=== PATIENT | female | born 1980 | race Caucasian/White ===

== ENCOUNTER → 2021-01-17 | Outpatient (CLI) | payer BC | END | disposition home or self-care (01) | LOC: LABWHC1 11:14 | PROVIDERS: ATTEND Physician Assistant Medical | DX: L70.8 Other acne (principal) | CPT/HCPCS: 36415; 84132 ==

== ENCOUNTER → 2021-05-29 | Outpatient (CLI) | payer BC | END | disposition home or self-care (01) | CPT/HCPCS: 77067 ==

== ENCOUNTER → 2021-12-31 | Outpatient (CLI) | payer BC | END | disposition home or self-care (01) | LOC: LABWHC1 12:49 | PROVIDERS: ATTEND Physician Assistant Medical | DX: L70.8 Other acne (principal) | CPT/HCPCS: 36415; 84132 ==

== ENCOUNTER → 2022-02-06 | Outpatient (CLI) | payer BC ==
[2022-02-06 22:27] LABS: Gliadin AB IgA, Deaminated POSITIVE (NEGATIVE); Gliadin AB IgA, Unit 41.4 U/mL; Gliadin AB IgG, Deaminated NEGATIVE (NEGATIVE); Gliadin AB IgG, Unit <0.4 U/mL; Tis Transglutaminase IgA Unit <0.5 AI; Tis Transglutaminase IgG Unit <0.8 U/mL; Tissue Transglutaminase IgA NEGATIVE (NEGATIVE); Tissue Transglutaminase IgG NEGATIVE (NEGATIVE)
== END | disposition home or self-care (01) ==
LOC: LABWHC1 12:22
PROVIDERS: ATTEND Internal Medicine Gastroenterology
DX: R14.0 Abdominal distension (gaseous) (principal)
CPT/HCPCS: 36415; 83516

== ENCOUNTER → 2024-09-26 | Outpatient (CLI) | payer BC | END | disposition home or self-care (01) | LOC: LABWHC1 12:06 | PROVIDERS: ATTEND Physician Assistant Medical | DX: L70.8 Other acne (principal) | CPT/HCPCS: 36415; 84132 ==

== ENCOUNTER → 2025-06-26 | Outpatient (CLI) | payer BC ==
--- NOTE | 2025-06-26 09:58 | US ---
EXAMINATION TYPE: US arterial LE single level DATE OF EXAM: 06/26/2025 9:44 AM COMPARISONS: None. CLINICAL INDICATION: Female, 44 years old with history of R20.2 PARESTHESIA OF SKIN; TECHNIQUE: Systolic pressures were taken of the upper and lower extremity arteries with ankle-brachia l indices and toe brachial indices calculated bilaterally. History of: Smoker: No Hypertension: No Diabetic: No Hyperlipidemia: No TIA/CVA: No Previous Vascular Surgery: Varicose veins W[place]: No Vascular Ulcers: No Claudication: Yes FINDINGS: Doppler Waveforms: Right: Multiphasic Left: Multiphasic Brachial Artery systolic pressure: Right: 127 Left: 119 Posterior Tibial artery systolic pressure: Right: 160 Left: 155 Dorsalis Pedis artery systolic pressure: Right: 140 Left: 115 Ankle-Brachial Indices: Right: 1.26 Left: 1.22 IMPRESSION: BELKIS: Right: Normal 0.9 - 1.4, Recommendation: None Left: Normal 0.9 - 1.4, Recommendation: None [facility], , 06/26/2025 9:56 AM
== END | disposition home or self-care (01) ==
LOC: RADUSWWP 09:06
PROVIDERS: ATTEND Family Medicine
DX: R20.2 Paresthesia of skin (principal)
CPT/HCPCS: 93922